=== PATIENT | female | born 1965 | race Caucasian/White ===

== ENCOUNTER 2020-02-25 14:26 | Inpatient (IN) | payer MEDICARE, OTHER ==
[2020-02-25] VITALS (13 sets, daily range): BP systolic 73–117; BP diastolic 28–65
[~2020-02-25] VITALS: Ht 149.9 cm; Wt 41.1 kg
[~2020-02-25 14:26] MED LIST: ALBUTEROL2.5 MG/31; ZOFRAN ODT4 MG PO; [UNRECOGNIZED DRUG - OTHER]
[2020-02-25 15:22] LABS: ABSOLUTE LYMPHOCYTES 1.5 thou/uL (0.8-5.3); ABSOLUTE MONOCYTES 0.2 thou/uL (0.0-1.2); ABSOLUTE NEUTROPHILS 1.6 thou/uL (1.6-8.1); BASOPHILS 0.9 %; EOSINOPHILS 0.5 %; HEMATOCRIT 39.9 % (37.0-47.0); HEMOGLOBIN 13.5 gm/dL (12.0-15.0); LYMPHOCYTES 43.5 %; MCH 35.9 pg (26.0-34.0); MCHC 33.7 g/dL (28.0-37.0); MCV 106.6 fL (80.0-100.0); MONOCYTES 7.2 %; MPV 8.3 fl. (7.2-11.1); NUCLEATED RBCS 0 /100WBC; PLATELET COUNT* 197 thou/uL (150-400); POLYS 47.9 %; RBC 3.75 mil/uL (4.20-5.00); RDW-CV 14.7 % (10.5-14.5); WBC 3.4 thou/uL (4.0-11.0)
[2020-02-25 15:34] LABS: CALCIUM 7.8 mg/dL (8.5-10.1); CREATININE 0.4 mg/dL (0.6-1.3); POTASSIUM 3.6 mmol/L (3.5-5.1)
[2020-02-25 15:39] LABS: URINE BILIRUBIN NEGATIVE (Negative); URINE BLOOD 1+ (Negative); URINE CLARITY CLOUDY; URINE COLOR STRAW; URINE GLUCOSE-RANDOM NEGATIVE (Negative); URINE KETONES NEGATIVE (Negative); URINE PROTEIN 2+ (Negative); URINE UROBILINOGEN 0.2 E.U./dl (0.2-1.0)
[2020-02-25 15:39] LABS: ALBUMIN 2.3 g/dL (3.4-5.0); TOTAL BILIRUBIN 0.4 mg/dL (<0.1-1.0); TOTAL PROTEIN 6.1 g/dL (6.4-8.2)
[2020-02-25 15:43] LABS: SQUAMOUS 0-3 Few /LPF (0-3); URINE LEUKOCYTES-REFLEX 3+ (Negative); URINE NITRITE-REFLEX POSITIVE (Negative); WBC CLUMPS Many (None Seen)
[2020-02-25 15:44] LABS: BACTERIA-REFLEX >30 Many /HPF (None Seen); CASTS None Seen /LPF (None Seen); CRYSTALS None Seen /LPF (None Seen); MUCUS 0-3 Light strn/LPF (None Seen); URINE RBC 3-10 Few /HPF (0-2); URINE WBC-REFLEX >25 Many /HPF (0-5)
[2020-02-25 20:41] LABS: BE 2.6 mmol/L (-2 to +3)
[2020-02-25 20:45] LABS: PCO2 19.4 mmHg (35.0-45.0); PO2 200.7 mmHg (75.0-100.0); pH 7.657 (7.340-7.450)
[2020-02-26] VITALS (68 sets, daily range): BP systolic 57–136; BP diastolic 20–66
[2020-02-26 05:12] LABS: HEMATOCRIT 38.2 % (37.0-47.0); HEMOGLOBIN 12.9 gm/dL (12.0-15.0); MCH 35.5 pg (26.0-34.0); MCHC 33.8 g/dL (28.0-37.0); MCV 104.9 fL (80.0-100.0); MPV 8.4 fl. (7.2-11.1); NUCLEATED RBCS 0 /100WBC; PLATELET COUNT* 246 thou/uL (150-400); RBC 3.64 mil/uL (4.20-5.00); RDW-CV 14.7 % (10.5-14.5); WBC 10.4 thou/uL (4.0-11.0)
[2020-02-26 05:35] LABS: CALCIUM 7.7 mg/dL (8.5-10.1); CREATININE 0.6 mg/dL (0.6-1.3); POTASSIUM 3.6 mmol/L (3.5-5.1)
[2020-02-26 05:54] LABS: ABSOLUTE LYMPHOCYTES 0.5 thou/uL (0.8-5.3); ABSOLUTE NEUTROPHILS 9.9 thou/uL (1.6-8.1); ANISOCYTOSIS 1+; PLATELET ESTIMATE ADEQUATE; POIKILOCYTOSIS 1+
[2020-02-26 08:57] LABS: BE -0.3 mmol/L (-2 to +3); PCO2 31.2 mmHg (35.0-45.0); pH 7.474 (7.340-7.450)
[2020-02-26 08:59] LABS: PO2 152.1 mmHg (75.0-100.0)
--- NOTE | 2020-02-26 12:19 | EKG ---
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1965 Requested By: Adonay Roblero Order Number: [id number] MD: Frankie Fisher Measurements Intervals [place] Rate: 49 P: 55 MN: 148 QRS: 41 QRSD: 91 T: 68 QT: 489 QTc: 442 Interpretive Statements Sinus bradycardia nonspecific t wave changes Baseline wander in lead(s) V5 Compared to ECG 08/18/2006 13:09:09 ST (T wave) deviation now present Sinus rhythm no longer present Electronically Signed On 02-26-2020 12:19:12 OFFAL SEPARATOR by Frankie Fisher [email or web address] <ELECTRONICALLY SIGNED> By: Frankie Fisher MD, FACC 02/26/20 1219 10 151 Frankie Fisher MD, FACC /EPI
[2020-02-26 13:56] LABS: APTT 23.9 Seconds (25.0-31.3); PROTIME 10.9 Seconds (9.20-11.50)
--- NOTE | 2020-02-26 15:55 | 2DMMODE ---
[place] [address] 2 D/M-MODE ECHOCARDIOGRAM Name: ISRAELZOE Room: 006-P ADM IN M.R.#: [id number] Admission: 02/25/20 Attend Phys: James Sanchez, Discharge: Date of : 63 Date of Service: 02/26/20 1555 Report #: [id number] THIS REPORT FOR: cc: Uyen Hernandez Maggie M. DO Blick, David R. MD [facility] ~ APPROVED REPORT Study performed: 02/26/2020 14:42:03 EXAM: Comprehensive 2D, Doppler, and color-flow Echocardiogram Patient Location: In-Patient Room #: 006 Status: routine BSA: 1.39 HR: 52 bpm BP: 126/52 mmHg Rhythm: NSR Other Information Study Quality: Good Technically limited study due to no apical views. Indications Hypotension 2D Dimensions IVSd: 6.91 (7-11mm) LVOT Diam: 18.83 (18-24mm) LVDd: 38.18 mm PWd: 8.34 (7-11mm) LVDs: 19.73 (25-40mm) Aortic Root: 17.20 mm Pulmonary Valve PV Peak Vignesh.: 1.58 m/s PV Peak Gr.: 10.05 mmHg Tricuspid Valve RAP Estimate: 5.00 mmHg TR Peak Gr.: 21.12 mmHg RVSP: 26.00 mmHg PA Pressure: 26.00 mmHg Left Ventricle The left ventricle is normal size. There is [place] [address] 2 D/M-MODE ECHOCARDIOGRAM Name: ZOE WOOD Room: [address] IN [facility]#: [id number] Admission: 02/25/20 Attend Phys: James Sanchez, Discharge: Date of : 63 Date of Service: 02/26/20 1555 Report #: [id number] motion. There is normal left ventricular wall thickness. Left ventricular systolic function is normal. The left ventricular ejection fraction is within the normal range. LVEF is 65-70%. This study is not technically sufficient to allow evaluation of the LV diastolic function. Right Ventricle The right ventricle is normal size. The right ventricular systolic function is normal. Atria The left atrium size is normal. The right atrium size is normal. Aortic Valve The aortic valve is normal in structure. No aortic regurgitation is present. There is no aortic valvular stenosis. Mitral Valve The mitral valve is normal in structure. Trace mitral regurgitation. No evidence of mitral valve stenosis. Tricuspid Valve The tricuspid valve is normal in structure. Mild tricuspid regurgitation. estimated pa pressure 30 mm Hg Pulmonic Valve The pulmonary valve is normal in structure. There is no pulmonic valvular regurgitation. Great Vessels The aortic root is normal in size. IVC is normal in size and collapses >50% with inspiration. Pericardium There is no pericardial effusion. Moderate left pleural effusion. <Conclusion> LVEF is 65-70%. Mild tricuspid regurgitation. estimated pa pressure 30 mm Hg <ELECTRONICALLY SIGNED> By: Frankie Fisher MD, FACC 02/26/20 1555 1555 1555 Frankie Fisher MD, FACC /INF
[2020-02-26 18:10] LABS: CALCIUM 7.7 mg/dL (8.5-10.1); CREATININE 0.7 mg/dL (0.6-1.3); POTASSIUM 3.4 mmol/L (3.5-5.1)
[2020-02-27] VITALS (31 sets, daily range): BP systolic 89–138; BP diastolic 34–61
[2020-02-27 05:26] LABS: ABSOLUTE LYMPHOCYTES 0.9 thou/uL (0.8-5.3); ABSOLUTE MONOCYTES 0.4 thou/uL (0.0-1.2); ABSOLUTE NEUTROPHILS 16.1 thou/uL (1.6-8.1); BASOPHILS 0.1 %; HEMATOCRIT 39.4 % (37.0-47.0); HEMOGLOBIN 13.2 gm/dL (12.0-15.0); LYMPHOCYTES 5.3 %; MCH 35.3 pg (26.0-34.0); MCHC 33.4 g/dL (28.0-37.0); MCV 105.7 fL (80.0-100.0); MONOCYTES 2.1 %; MPV 8.5 fl. (7.2-11.1); NUCLEATED RBCS 0 /100WBC; PLATELET COUNT* 235 thou/uL (150-400); POLYS 92.5 %; RBC 3.72 mil/uL (4.20-5.00); RDW-CV 14.8 % (10.5-14.5); WBC 17.4 thou/uL (4.0-11.0)
[2020-02-27 05:41] LABS: ALBUMIN 2.2 g/dL (3.4-5.0); CALCIUM 7.7 mg/dL (8.5-10.1); CREATININE 0.5 mg/dL (0.6-1.3); MAGNESIUM 2.4 mg/dL (1.8-2.4); TOTAL BILIRUBIN 0.4 mg/dL (<0.1-1.0); TOTAL PROTEIN 6.3 g/dL (6.4-8.2)
[2020-02-27 05:44] LABS: POTASSIUM 2.9 mmol/L (3.5-5.1)
[2020-02-27 09:27] LABS: PCO2 32.4 mmHg (35.0-45.0); PO2 78.5 mmHg (75.0-100.0); pH 7.512 (7.340-7.450)
--- NOTE | 2020-02-27 10:49 | EKG ---
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1965 Requested By: Frankie Fisher Order Number: [id number] MD: Moreno Blackwood Measurements Intervals [place] Rate: 48 P: 69 UT: 139 QRS: 57 QRSD: 81 T: 78 QT: 567 QTc: 507 Interpretive Statements Sinus bradycardia Nonspecific T wave flattening PROLONGED QT INTERVAL Compared to ECG 02/25/2020 15:11:05 T-wave abnormality no longer present Electronically Signed On 02-27-2020 10:49:34 HEAD HOST/HOSTESS by Moreno Blackwood [email or web address] <ELECTRONICALLY SIGNED> By: Moreno Blackwood MD, FACC 02/27/20 1049 0807 0807 Moreno Blackwood MD, FAC /EPI
--- NOTE | 2020-02-27 13:47 | CON ---
[address] [address] CONSULTATION Name: ZOE WOOD Room: [address] IN .R.#: [id number] Admission: 02/25/20 Attend Phys: James Sanchez MD Discharge: Date of : 63 Report #: [id number] THIS REPORT FOR: //name// cc: Uyen Hernandez Maggie M. DO ~ DATE OF SERVICE: 02/26/2020 CARDIOLOGY CONSULTATION HISTORY OF PRESENT ILLNESS: The patient is a 54-year-old white female who I was asked to see in the ICU today after she was noted to be bradycardic. The history is obtained from the chart, there are no family members available at this time. The patient is currently intubated. She apparently was brought to the Emergency Room yesterday by ambulance. She apparently has a history of Down syndrome. According to paramedics, she had a seizure one hour prior to admission. When the paramedics arrived, she was lying in bed and had urinated on herself. She had tremors in the ambulance. She was given Versed. She was placed on oxygen. She apparently does have a history of seizures. After admission, she was intubated for respiratory distress. She was noted to be bradycardic and Cardiology consultation was requested. PAST MEDICAL HISTORY: Significant for chronic ear problems. MEDICATIONS: Her only medications including albuterol inhaler. ALLERGIES: SHE HAS AN ALLERGY TO PENICILLIN. FAMILY HISTORY: Noncontributory. SOCIAL HISTORY: No smoking. No alcohol abuse. REVIEW OF SYSTEMS: Apparently otherwise unremarkable. PHYSICAL EXAMINATION: GENERAL: Revealed an elderly female lying in bed. She was on a ventilator. VITAL SIGNS: She had a blood pressure of 120/70, pulse 70. HEENT: She is anicteric. Conjunctivae are pink. Mucous membranes are moist. CHEST: Clear to auscultation. CARDIOVASCULAR: Regular rate and rhythm. ABDOMEN: Soft. EXTREMITIES: Had no edema. SKIN: Cool and dry. NEUROLOGIC: She would withdraw from pain. She occasionally would open her eyes. LABORATORY DATA: Her ECG on admission showed a sinus bradycardia, [place] [address] CONSULTATION Name: LATONYA WOODFIDEL GARCIA Room: [address]#: [id number] Admission: 02/25/20 Attend Phys: James Sancehz MD Discharge: Date of : 63 Report #: [id number] T-wave changes. Her lab work on admission revealed the following: Sodium 140, potassium 3.6, creatinine 0.6, glucose 208, SGOT 86, SGPT 173. Troponin 0.24. White blood cell count 10.4, hemoglobin 12.9. Her CT scan of the head performed without contrast yesterday in the Emergency Room showed no acute abnormalities, small ischemic changes noted. Her chest x-ray on admission showed atelectasis. IMPRESSION AND RECOMMENDATIONS: 1. Bradycardia. Recommend checking thyroid function studies. 2. Hypotension. Suspect sepsis. 3. Seizure. 4. Respiratory distress. The patient intubated. Recommend echocardiogram. 5. Elevated liver function studies. 6. Elevated blood glucose. I would recommend ruling out diabetes. <ELECTRONICALLY SIGNED> By: Frankie Fisher MD, FACC 02/27/20 1347 1302 [id number] Fisher MD, FACC /nt
[2020-02-27 17:14] LABS: CREATININE 0.5 mg/dL (0.6-1.3); POTASSIUM 3.1 mmol/L (3.5-5.1)
[2020-02-28] VITALS (38 sets, daily range): BP systolic 68–123; BP diastolic 45–87
[2020-02-28 04:23] LABS: ABSOLUTE MONOCYTES 0.4 thou/uL (0.0-1.2); ABSOLUTE NEUTROPHILS 11.7 thou/uL (1.6-8.1); BASOPHILS 0.1 %; HEMATOCRIT 31.8 % (37.0-47.0); LYMPHOCYTES 7.5 %; MCH 36.3 pg (26.0-34.0); MCHC 34.6 g/dL (28.0-37.0); MCV 104.9 fL (80.0-100.0); MONOCYTES 2.8 %; MPV 7.5 fl. (7.2-11.1); NUCLEATED RBCS 0 /100WBC; PLATELET COUNT* 188 thou/uL (150-400); POLYS 89.6 %; RBC 3.03 mil/uL (4.20-5.00); RDW-CV 14.8 % (10.5-14.5)
[2020-02-28 04:50] LABS: ALBUMIN 2.9 g/dL (3.4-5.0); CALCIUM 7.9 mg/dL (8.5-10.1); CREATININE 0.5 mg/dL (0.6-1.3); MAGNESIUM 2.1 mg/dL (1.8-2.4); TOTAL BILIRUBIN 0.5 mg/dL (<0.1-1.0); TOTAL PROTEIN 6.1 g/dL (6.4-8.2)
[2020-02-28 12:34] LABS: BE 5.2 mmol/L (-2 to +3); PCO2 38.8 mmHg (35.0-45.0); pH 7.489 (7.340-7.450)
[2020-02-28 12:43] LABS: PO2 159.3 mmHg (75.0-100.0)
--- NOTE | 2020-02-28 14:26 | CON ---
[address] [address] CONSULTATION Name: ZOE WOOD Room: [address] ADM IN .R.#: [id number] Admission: 02/25/20 Attend Phys: James Sanchez MD Discharge: Date of : 63 Report #: [id number] THIS REPORT FOR: //name// cc: Uyen Hernandez Maggie M. DO ~ DATE OF SERVICE: 02/28/2020 PRIMARY CARE PHYSICIAN: Uyen Hernandez DO Please note at the time of this dictation, the patient was seen and physically examined by myself. REASON FOR CONSULTATION: Elevated LFTs. HISTORY OF PRESENT ILLNESS: This is a 54-year-old female who presented to the Emergency Room, brought by EMS with having a seizure. Upon arrival of the EMS, they noted that she was incontinent of urine and then had another seizure in the ambulance on the way here. It is noted that she has had a history of seizures in the past. She also then began developing some respiratory distress and was intubated at that time and is currently on the vent. Unable to obtain any of her past medical history or review of systems, all is obtained from the chart at the present time. ALLERGIES: KEFLEX AND PENICILLIN. MEDICATIONS: From home, no known medications. PAST MEDICAL HISTORY: Down syndrome, chronic ear problems and PVD. PAST SURGICAL HISTORY: Negative. FAMILY HISTORY: Unknown. SOCIAL HISTORY: No alcohol, tobacco or illegal drug use. REVIEW OF SYSTEMS: Twelve-point review of systems is essentially negative except what is mentioned in the HPI. PHYSICAL EXAMINATION: VITAL SIGNS: Temperature 36.6, pulse 67, respirations 13 and on the ventilator, blood pressure 118/55. HEART: Regular rate and rhythm. LUNGS: Diminished with some crackles bilaterally. ABDOMEN: Soft, positive bowel sounds in all 4 quadrants [place] [address] CONSULTATION Name: ZOE WOOD Room: [address] IN [facility]#: [id number] Admission: 02/25/20 Attend Phys: James Sanchez MD Discharge: Date of : 63 Report #: [id number] tenderness noted. LABORATORY DATA: Hemoglobin 11, white count is 13, platelets 188. GFR is 128. Total bilirubin 0.5, alkaline phosphatase highest was 116, it is down to 82, ALT was 173 down to 86, AST 86 down to 25, positive for UTI with some sepsis. IMAGING: Ultrasound was negative. CT showed gallbladder distention and a large amount of stool throughout the colon. IMPRESSION: 1. Elevated liver function tests, trending down. 2. Constipation. 3. Leukocytosis. 4. Down syndrome. 5. Sepsis urinary tract infection. 6. Seizure disorder. PLAN: 1. We will check acute hepatitis panel and autoimmune labs. 2. Further recommendations to be made once the above have all been noted. Thank you for allowing us to participate in this patient's care. Please do not hesitate to call with any questions in regard to this consult. <ELECTRONICALLY SIGNED> By: Rick Breen DO 02/28/20 1426 1021 [id number] Breen DO /nt
[2020-02-29] VITALS (27 sets, daily range): BP systolic 65–133; BP diastolic 36–80
[2020-02-29 04:36] LABS: ABSOLUTE LYMPHOCYTES 1.3 thou/uL (0.8-5.3); ABSOLUTE MONOCYTES 0.5 thou/uL (0.0-1.2); ABSOLUTE NEUTROPHILS 7.8 thou/uL (1.6-8.1); BASOPHILS 0.1 %; HEMATOCRIT 35.5 % (37.0-47.0); HEMOGLOBIN 12.1 gm/dL (12.0-15.0); LYMPHOCYTES 13.9 %; MONOCYTES 5.1 %; MPV 8.1 fl. (7.2-11.1); NUCLEATED RBCS 0 /100WBC; PLATELET COUNT* 196 thou/uL (150-400); POLYS 80.9 %; RBC 3.35 mil/uL (4.20-5.00); RDW-CV 14.8 % (10.5-14.5); WBC 9.6 thou/uL (4.0-11.0)
[2020-02-29 05:03] LABS: ALBUMIN 2.8 g/dL (3.4-5.0); CALCIUM 7.7 mg/dL (8.5-10.1); CREATININE 0.4 mg/dL (0.6-1.3); POTASSIUM 3.3 mmol/L (3.5-5.1); TOTAL BILIRUBIN 0.4 mg/dL (<0.1-1.0); TOTAL PROTEIN 6.5 g/dL (6.4-8.2)
[2020-02-29 07:08] LABS: HEPATITIS B SURFACE AG Negative (Negative)
[2020-02-29 14:07] LABS: ANA INTERPRETATION Negative (Negative)
[2020-03-01] VITALS (67 sets, daily range): BP systolic 79–128; BP diastolic 33–87
[2020-03-01 07:02] LABS: ABSOLUTE LYMPHOCYTES 1.1 thou/uL (0.8-5.3); ABSOLUTE MONOCYTES 0.4 thou/uL (0.0-1.2); BASOPHILS 0.1 %; HEMATOCRIT 34.6 % (37.0-47.0); LYMPHOCYTES 14.1 %; MCH 36.7 pg (26.0-34.0); MCHC 34.8 g/dL (28.0-37.0); MCV 105.4 fL (80.0-100.0); MONOCYTES 5.2 %; MPV 7.9 fl. (7.2-11.1); NUCLEATED RBCS 0 /100WBC; PLATELET COUNT* 187 thou/uL (150-400); POLYS 80.6 %; RBC 3.28 mil/uL (4.20-5.00); RDW-CV 14.5 % (10.5-14.5); WBC 7.5 thou/uL (4.0-11.0)
[2020-03-01 07:20] LABS: ALBUMIN 2.6 g/dL (3.4-5.0); CALCIUM 7.7 mg/dL (8.5-10.1); CREATININE 0.3 mg/dL (0.6-1.3); PHOSPHORUS* 1.6 mg/dL (2.5-4.9); POTASSIUM 3.5 mmol/L (3.5-5.1); TOTAL BILIRUBIN 0.4 mg/dL (<0.1-1.0); TOTAL PROTEIN 6.2 g/dL (6.4-8.2)
[2020-03-02] VITALS (77 sets, daily range): BP systolic 78–120; BP diastolic 34–81
[2020-03-03] VITALS (58 sets, daily range): BP systolic 63–118; BP diastolic 30–65
[2020-03-04] VITALS (16 sets, daily range): BP systolic 78–117; BP diastolic 52–66
[2020-03-04 13:22] LABS: ABSOLUTE LYMPHOCYTES 1.3 thou/uL (0.8-5.3); ABSOLUTE MONOCYTES 0.4 thou/uL (0.0-1.2); ABSOLUTE NEUTROPHILS 5.6 thou/uL (1.6-8.1); BASOPHILS 0.3 %; HEMATOCRIT 38.1 % (37.0-47.0); HEMOGLOBIN 12.8 gm/dL (12.0-15.0); MCH 35.9 pg (26.0-34.0); MCHC 33.7 g/dL (28.0-37.0); MCV 106.4 fL (80.0-100.0); MONOCYTES 5.7 %; MPV 8.2 fl. (7.2-11.1); NUCLEATED RBCS 0 /100WBC; PLATELET COUNT* 246 thou/uL (150-400); RBC 3.58 mil/uL (4.20-5.00); RDW-CV 14.4 % (10.5-14.5); WBC 7.3 thou/uL (4.0-11.0)
[2020-03-04 13:35] LABS: ALBUMIN 2.5 g/dL (3.4-5.0); CALCIUM 7.9 mg/dL (8.5-10.1); CREATININE 0.4 mg/dL (0.6-1.3); TOTAL BILIRUBIN 0.6 mg/dL (<0.1-1.0); TOTAL PROTEIN 6.3 g/dL (6.4-8.2)
[2020-03-04 13:37] LABS: POTASSIUM 2.4 mmol/L (3.5-5.1)
[2020-03-05] VITALS (11 sets, daily range): BP systolic 85–108; BP diastolic 49–72
[2020-03-05 06:15] LABS: ANION GAP < 0 mmol/L (7-16); BUN 16 mg/dL (7-18); CALCIUM 7.6 mg/dL (8.5-10.1); CHLORIDE 106 mmol/L (98-107); CO2 36 mmol/L (21-32); CREATININE 0.4 mg/dL (0.6-1.3); GLUCOSE 174 mg/dL (70-99); SODIUM 141 mmol/L (136-145)
[2020-03-05 06:16] LABS: POTASSIUM 4.1 mmol/L (3.5-5.1)
[2020-03-05 10:41] LABS: URINE BILIRUBIN NEGATIVE (Negative); URINE BLOOD TRACE (Negative); URINE CLARITY CLEAR; URINE COLOR YELLOW; URINE GLUCOSE-RANDOM NEGATIVE (Negative); URINE KETONES TRACE (Negative); URINE NITRITE-REFLEX NEGATIVE (Negative); URINE PROTEIN TRACE (Negative)
[2020-03-05 10:43] LABS: URINE LEUKOCYTES-REFLEX 2+ (Negative)
[2020-03-05 10:55] LABS: BACTERIA-REFLEX 1-9 Few /HPF (None Seen); CASTS None Seen /LPF (None Seen); CRYSTALS None Seen /LPF (None Seen); MUCUS None Seen strn/LPF (None Seen); SQUAMOUS 0-3 Few /LPF (0-3); URINE RBC 3-10 Few /HPF (0-2)
[2020-03-06] VITALS: BP 137/74
[2020-03-06 04:00] VITALS: BP 96/56
[2020-03-06 05:59] LABS: HEMATOCRIT 31.5 % (37.0-47.0); MCH 36.5 pg (26.0-34.0); MCHC 34.1 g/dL (28.0-37.0); MPV 8.1 fl. (7.2-11.1); RBC 2.94 mil/uL (4.20-5.00); RDW-CV 14.8 % (10.5-14.5); WBC 9.8 thou/uL (4.0-11.0)
[2020-03-06 06:01] LABS: HEMOGLOBIN 10.7 gm/dL (12.0-15.0)
[2020-03-06 06:14] LABS: CALCIUM 7.6 mg/dL (8.5-10.1); CREATININE 0.4 mg/dL (0.6-1.3); MAGNESIUM 2.4 mg/dL (1.8-2.4); POTASSIUM 3.6 mmol/L (3.5-5.1)
[2020-03-06 08:00] VITALS: BP 96/58
[2020-03-06 19:45] VITALS: BP 137/70
[2020-03-07] VITALS: BP 117/66
[2020-03-07 04:00] VITALS: BP 113/69
[2020-03-07 05:45] LABS: HEMATOCRIT 35.9 % (37.0-47.0); MCH 35.8 pg (26.0-34.0); MCHC 33.5 g/dL (28.0-37.0); MPV 8.2 fl. (7.2-11.1); RBC 3.35 mil/uL (4.20-5.00); RDW-CV 14.2 % (10.5-14.5); WBC 18.3 thou/uL (4.0-11.0)
[2020-03-07 05:49] LABS: CREATININE 0.6 mg/dL (0.6-1.3); MAGNESIUM 2.1 mg/dL (1.8-2.4); POTASSIUM 3.1 mmol/L (3.5-5.1)
[2020-03-07 08:00] VITALS: BP 98/62
[2020-03-07 20:00] VITALS: BP 96/62
[2020-03-07 23:20] LABS: INFLUENZA A ANTIGEN Negative (Negative); INFLUENZA B ANTIGEN Negative (Negative)
[2020-03-08] VITALS: BP 101/56
[2020-03-08 04:00] VITALS: BP 100/47
[2020-03-08 08:00] VITALS: BP 114/56
[2020-03-08 12:34] VITALS: BP 110/56
[2020-03-08 15:38] LABS: HEMATOCRIT 34.1 % (37.0-47.0); HEMOGLOBIN 11.4 gm/dL (12.0-15.0); MCH 36.3 pg (26.0-34.0); MCHC 33.4 g/dL (28.0-37.0); MCV 108.5 fL (80.0-100.0); MPV 7.9 fl. (7.2-11.1); RBC 3.14 mil/uL (4.20-5.00); RDW-CV 14.9 % (10.5-14.5); WBC 20.1 thou/uL (4.0-11.0)
[2020-03-08 15:52] LABS: CALCIUM 7.3 mg/dL (8.5-10.1); CREATININE 0.6 mg/dL (0.6-1.3); MAGNESIUM 2.4 mg/dL (1.8-2.4); POTASSIUM 4.1 mmol/L (3.5-5.1); TOTAL BILIRUBIN 0.4 mg/dL (<0.1-1.0); TOTAL PROTEIN 5.4 g/dL (6.4-8.2)
[2020-03-08 16:43] VITALS: BP 108/55
[2020-03-08 19:07] LABS: URINE BILIRUBIN NEGATIVE (Negative); URINE BLOOD TRACE (Negative); URINE CLARITY CLEAR; URINE COLOR YELLOW; URINE GLUCOSE-RANDOM NEGATIVE (Negative); URINE KETONES NEGATIVE (Negative); URINE LEUKOCYTES-REFLEX NEGATIVE (Negative); URINE NITRITE-REFLEX NEGATIVE (Negative); URINE PROTEIN TRACE (Negative); URINE SPECIFIC GRAVITY 1.015 (1.005-1.030)
[2020-03-08 20:00] VITALS: BP 95/56
[2020-03-08] MEDS ORDERED: MELATONIN5 M4 PO (21:16)
[2020-03-09] VITALS: BP 109/43
[2020-03-09 04:00] VITALS: BP 106/54
[2020-03-09 13:21] VITALS: BP 124/51
[2020-03-09 16:37] VITALS: BP 139/73
[2020-03-09 19:50] VITALS: BP 127/50
[2020-03-10] VITALS (7 sets, daily range): BP systolic 81–164; BP diastolic 51–84
[2020-03-10 07:15] LABS: HEMATOCRIT 33.3 % (37.0-47.0); HEMOGLOBIN 11.1 gm/dL (12.0-15.0); MCH 36.5 pg (26.0-34.0); MCHC 33.4 g/dL (28.0-37.0); MCV 109.4 fL (80.0-100.0); MPV 7.9 fl. (7.2-11.1); RBC 3.05 mil/uL (4.20-5.00); WBC 9.5 thou/uL (4.0-11.0)
[2020-03-10] MEDS ORDERED: KEPPRA 500 MG500 M1 PO (07:17)
[2020-03-10] MEDS ORDERED: HYDROCORTISONE5 MG PO (07:17)
[2020-03-10] MEDS ORDERED: FLOMAX0.4 MG PO (07:17)
[2020-03-10 07:22] LABS: CALCIUM 7.3 mg/dL (8.5-10.1); CREATININE 0.5 mg/dL (0.6-1.3); MAGNESIUM 2.4 mg/dL (1.8-2.4)
[2020-03-11] VITALS: BP 98/42
[2020-03-11 08:00] VITALS: BP 100/46
--- NOTE | 2020-03-11 08:03 | CON ---
[address] [address] CONSULTATION Name: ZOE WOOD Room: [address] IN M.R.#: [id number] Admission: 02/25/20 Attend Phys: James Sanchez MD Discharge: Date of : 63 Report #: [id number] THIS REPORT FOR: //name// cc: Uyen Hernandez Maggie M. DO ~ DATE OF SERVICE: 02/26/2020 REQUESTING PHYSICIAN: James Sanchez MD INDICATION FOR CONSULTATION: Ventilator management. HISTORY OF PRESENT ILLNESS: A 54-year-old female with past medical history includes a history of Down syndrome. The patient is now admitted with seizure-like activity. She is reported to have had tonic-clonic seizures on initial presentation. The patient was endotracheally intubated for airway protection. The patient currently is significantly hypotensive and remains on a norepinephrine infusion. She dropped her heart rate. For this reason, this is being switched over to dopamine, in fact the patient has both dopamine as well as a norepinephrine running at this time. During the night, the patient also received a propofol as well as fentanyl infusion. Considering seizure activity as well as the fact that the patient was hypotensive, this has been switched over to Versed drip. The patient is currently ventilating and oxygenating adequately. Seizure activity has subsided. She has had a low-grade fever. There is no swelling of lower extremities. She has been given fluids overnight, which she has tolerated well. The patient is on the ventilator; and therefore, is unable to provide a further history or review of systems. PAST MEDICAL HISTORY: Down syndrome, chronic ear problems, peripheral vascular disease. SOCIAL HISTORY: Lifetime nonsmoker. No known history of heavy alcohol use or illegal drug use. CURRENT MEDICATIONS: List in [facility] reviewed. HOME MEDICATIONS: In [facility] reviewed. FAMILY HISTORY: There is no pertinent family history. ALLERGIES: THE PATIENT IS REPORTED TO BE ALLERGIC TO BOTH CEPHALOSPORINS WELL PENICILLINS. THE PATIENT, HOWEVER, IS CURRENTLY ON MEROPENEM AND HAS NOT HAD AN ADVERSE REACTION TO MEROPENEM. PHYSICAL EXAMINATION: GENERAL: She is sedated with Versed, 35% FiO2, assist control mode of ventilation, 5 of PEEP. Ventilator settings as well [place] [address] CONSULTATION Name: ISRAELZOE Room: [address]#: [id number] Admission: 02/25/20 Attend Phys: James Sanchez MD Discharge: Date of : 63 Report #: [id number] She is bradycardic. VITAL SIGNS: Heart rate is between 35 and 45, blood pressure with the pressors as described is maintained at 120/50. She is saturating 99%. She has had a low-grade fever overnight up to 37.8. Temperature is 37.0 at this time. HEENT: Head is normocephalic and atraumatic. Endotracheal tube is low in the trachea. NECK: Does not show raised JVP, asymmetry, mass or lymph nodes. CHEST: Symmetrical expansion on inspection and palpation. On auscultation, chest is clear. HEART: Regular, no murmur. ABDOMEN: Soft and nontender. EXTREMITIES: Lower extremities show no edema, no calf tenderness. SKIN: Dry and intact. NEUROLOGICAL: She does move all extremities to pain. LABORATORY DATA: The patient's chest x-ray from this morning is reviewed and compared with the patient's previous chest x-rays. There is a vague radiopaque density in the right middle lobe. I do not see any large infiltrates. I do not see any pulmonary vascular congestion. In case the patient aspirated, then the opacity in the right middle lobe could indicate that; however, it most likely represents chronic change. I see several similar findings on the x-ray in 2006 as well. The patient's arterial blood gases showing significant alkalosis in [facility] reviewed. CBC as well as chemistries in [facility] reviewed. Note that the patient initially did not have any elevation in neutrophils and did not have bandemia reported either. Urinalysis is abnormal in [facility] reviewed. COVID-19 antigen negative. PCR pending. ASSESSMENT AND PLAN: 1. Acute respiratory failure. At this time, we will go ahead and cut down on the tidal volume further considering that she had seizures earlier and she is hypotensive, I would agree with continuing with the Versed infusion. The patient does have a central line in place. 2. Shock/hypotension. I agree that the most likely etiology of shock and septic shock; however, we have not established this yet. Initially, the patient did not have elevated WBC count, did not have elevated neutrophils or bandemia. At this time, the patient's chest x-ray does not show any pulmonary vascular congestion. Therefore, she should be able to tolerate more fluids and I have ordered more fluids. Also, agree with continuing with hydrocortisone and is already ordered by the primary service and will also continue the same. We will see if as a result of a fluid bolus, her blood pressure comes up. If not, then I will consider obtaining an arterial line to verify that the blood pressures we are measuring are accurate. Also, I would like to investigate further the etiology of shock. Certainly, sepsis from urinary tract infection can lead to significant hypotension, but other etiologies are not ruled out. I ordered an echo. I also ordered coags including a D-dimer. We will review these and then we will consider obtaining a CT of the chest, abdomen, [place] [address] CONSULTATION Name: ZOE WOOD Room: [address] IN ..#: [id number] Admission: 02/25/20 Attend Phys: James Sanchez MD Discharge: Date of : 63 Report #: [id number] 3. Seizure activity. This has subsided now. The patient is on Versed infusion. We will bring the potassium up further. We will also check magnesium and if indicated then we will replace. 4. Sepsis secondary to urinary tract infection, on meropenem. More cultures are ordered. 5. Deep venous thrombosis prophylaxis, Lovenox. 6. Gastrointestinal prophylaxis, Protonix. The patient is critically ill at this time. Total time spent providing critical care is greater than 43 minutes. <ELECTRONICALLY SIGNED> By: Matti Purvis MD 03/11/20 0803 1239 [id number] Purvis MD /nt
[2020-03-11 08:04] LABS: HEMATOCRIT 28.7 % (37.0-47.0); HEMOGLOBIN 9.7 gm/dL (12.0-15.0); MCH 36.3 pg (26.0-34.0); MCHC 33.9 g/dL (28.0-37.0); MCV 107.3 fL (80.0-100.0); MPV 8.1 fl. (7.2-11.1); RBC 2.67 mil/uL (4.20-5.00); RDW-CV 14.9 % (10.5-14.5); WBC 5.5 thou/uL (4.0-11.0)
[2020-03-11 08:13] LABS: CALCIUM 7.2 mg/dL (8.5-10.1); CREATININE 0.5 mg/dL (0.6-1.3); POTASSIUM 3.7 mmol/L (3.5-5.1)
[2020-03-11 11:30] VITALS: BP 96/48
[2020-03-11 16:40] VITALS: BP 108/43
[2020-03-11 19:40] VITALS: BP 103/51
[2020-03-12 00:08] VITALS: BP 88/39
[2020-03-12 08:20] VITALS: BP 126/68
[2020-03-12 11:41] VITALS: BP 116/69
== END 2020-03-12 16:20 | DRG 871 ==
LOC: M.ERS 14:26 → M.TBA-ER 17:57 → M.2W 17:57 → M.ICU 17:57 → M.2W 17:57 → M.ICU 18:56 → M.2W 03-05 15:52
PROVIDERS: Emergency Medicine Emergency Medical Services; Internal Medicine; Internal Medicine Critical Care Medicine; Nurse Practitioner Adult Health; Pediatrics; ADMIT Internal Medicine; ATTEND Internal Medicine
PROC: 02HV33Z Insertion of Infusion Device into Superior Vena Cava, Percutaneous Approach (ICD-10-PCS; principal; 2020-02-25)
PROC: 0BH17EZ Insertion of Endotracheal Airway into Trachea, Via Natural or Artificial Opening (ICD-10-PCS; principal; 2020-02-25)
PROC: 5A1945Z Respiratory Ventilation, 24-96 Consecutive Hours (ICD-10-PCS; principal; 2020-02-25)
PROC: 00JU3ZZ Inspection of Spinal Canal, Percutaneous Approach (ICD-10-PCS; principal; 2020-02-25)
PROC: 4A133J1 Monitoring of Arterial Pulse, Peripheral, Percutaneous Approach (ICD-10-PCS; 2020-02-27)
PROC: 03HY32Z Insertion of Monitoring Device into Upper Artery, Percutaneous Approach (ICD-10-PCS; 2020-02-27)
PROC: 4A133B1 Monitoring of Arterial Pressure, Peripheral, Percutaneous Approach (ICD-10-PCS; 2020-02-27)
DX: A41.9 Sepsis, unspecified organism (principal); J96.01 Acute respiratory failure with hypoxia; E43 Unspecified severe protein-calorie malnutrition; G92 Toxic encephalopathy; J18.9 Pneumonia, unspecified organism; R57.9 Shock, unspecified; Z68.1 Body mass index [BMI] 19.9 or less, adult; N30.91 Cystitis, unspecified with hematuria; I73.9 Peripheral vascular disease, unspecified; R79.89 Other specified abnormal findings of blood chemistry; L89.159 Pressure ulcer of sacral region, unspecified stage; F03.90 Unspecified dementia, unspecified severity, without behavioral disturbance, psychotic disturbance, mood disturbance, and anxiety; G40.909 Epilepsy, unspecified, not intractable, without status epilepticus; Z20.828 Contact with and (suspected) exposure to other viral communicable diseases; Q90.9 Down syndrome, unspecified; Z79.899 Other long term (current) drug therapy; Z88.1 Allergy status to other antibiotic agents; Z88.0 Allergy status to penicillin

== ENCOUNTER 2020-03-12 14:09 | Inpatient (IN) | payer MEDICARE, OTHER ==
[~2020-03-12] VITALS: Ht 137.2 cm; Wt 38.7 kg
[~2020-03-12 14:09] MED LIST changes: +FLOMAX0.4 MG PO; +HYDROCORTISONE5 MG PO; +KEPPRA 500 MG500 M1 PO; +MELATONIN5 M4 PO
[2020-03-12 16:30] VITALS: BP 95/52
--- NOTE | 2020-03-12 17:13 | NUR ---
PATIENT ARRIVED TO UNIT AT 1630. ALERT TO SELF. VITAL SIGNS STABLE ON ROOM AIR. PATIENT CALLS OUT A LOT. FALL PRECAUTIONS IN PLACE AND BED ALARM ON. ORIENTED PATIENT TO ROOM. CALL LIGHT WITHIN REACH. NURSING WILL CONTINUE TO MONITOR.
[2020-03-12 19:00] VITALS: BP 112/50
[2020-03-13 05:41] LABS: HEMATOCRIT 32.4 % (37.0-47.0); HEMOGLOBIN 10.9 gm/dL (12.0-15.0); MCH 36.6 pg (26.0-34.0); MCHC 33.7 g/dL (28.0-37.0); MCV 108.9 fL (80.0-100.0); RBC 2.97 mil/uL (4.20-5.00); RDW-CV 15.7 % (10.5-14.5); WBC 8.4 thou/uL (4.0-11.0)
[2020-03-13 05:51] LABS: CALCIUM 7.7 mg/dL (8.5-10.1); CREATININE 0.6 mg/dL (0.6-1.3); POTASSIUM 4.1 mmol/L (3.5-5.1)
[2020-03-13 08:00] VITALS: BP 112/50
--- NOTE | 2020-03-13 08:19 | NUR ---
Nutrition: Pt admitted to rehab with debility. Was intubated on other unit with UTI, sepsis, AMS. Then extubated. Eating well, ~75%, on pureed diet. Wound to coccyx area. H/o LEA Becerra. BG WNL, alb 2, prealb 17.9. Wt relatively stable, 91#. RD will order [place] bid for wound healing. Please encourage good intake of protein supplement. Consider mild risk. Will follow weekly on rehab unit.
--- NOTE | 2020-03-13 16:33 | NUR ---
AM ASSESSMENT AND VITAL SIGNS COMPLETED DOCUMENTED. PT IS COOPERATIVE AT TIMES BUT ALSO REFUSES AT TIMES. PT YELLS LOUDLY MOST OF THE DAY. PT FED HERSELF AT MEALS WITH MIN ASSIST. PT IS INCONTINENT OF BOWEL AND BLADDER AND DOES NOT PARTICIPATE IN CHRISTIANO CARE OR CHANGING THE BRIEF. PT'S BROTHER VISITED THIS AFTERNOON. PRN TYLENOL GIVEN ONCE. FALL PRECAUTIONS AND HOURLY ROUNDING CONTINUE.
[2020-03-13 19:30] VITALS: BP 131/66
[2020-03-14 00:18] LABS: URINE BILIRUBIN NEGATIVE (Negative); URINE BLOOD NEGATIVE (Negative); URINE CLARITY CLEAR; URINE COLOR YELLOW; URINE GLUCOSE-RANDOM NEGATIVE (Negative); URINE KETONES NEGATIVE (Negative); URINE LEUKOCYTES-REFLEX NEGATIVE (Negative); URINE NITRITE-REFLEX NEGATIVE (Negative); URINE PROTEIN NEGATIVE (Negative); URINE SPECIFIC GRAVITY 1.015 (1.005-1.030); URINE UROBILINOGEN 0.2 E.U./dl (0.2-1.0)
--- NOTE | 2020-03-14 05:52 | NUR ---
ASSUMED CARES AT 1920. ALERT. AT BEDTIME PT VERY RESTLESS AND MOANING OR YELLING OUT MOSTLY UNINTELLIBLE WORDS. DIFFICULT TO DETERMINE PT'S NEEDS. LATER PT SEEMED TO BE SAYING "I NEED TO PEE." PT HAD VERY MINIMAL URINE OUTUT. BLADDER SCAN SHOWED >[address] CASON. ORDERS OBTAINED FOR UA, FLOMAX, AND BLADDER SCAN EVERY 8 HRS AND STRAIGHT CATH IF >400 CC. PT WAS STRAIGHT CATH AND HAD 900 CC YELLOW CLEAR URINE. UA SENT WAS NEGATIVE. PT SETTLED DOWN AND HAS BEEN SLEEPING SINCE. PILLS CRUSHED WITH APPLESAUCE. DRSG TO COCCYX CHANGED. BED ALARM ON. WILL CONTINUE TO MONITOR.
[2020-03-14 07:30] VITALS: BP 146/64
[2020-03-14 20:25] VITALS: BP 123/84
--- NOTE | 2020-03-14 20:30 | NUR ---
IN BED YELLING OUT. YELLS OUT "NO" WHEN TAKING BLOOD PRESSURE. TOOK MEDICINE WITHOUT RESISTANCE CRUSHED WITH APPLESAUCE. WAS ABLE TO HOLD SIPPY CUP TO DRINK WATER. GAVE TYLENOL FOR S/S OF DISCOMFORT (RESTLESSNESS).
--- NOTE | 2020-03-15 06:03 | NUR ---
RESTED QUIETLY. YELLS OUT NO WHEN ASSISTED WITH TURNING. INCONTINENT OF URINE X ONE. CHRISTIANO CARE GIVEN. HOURLY ROUNDING IN PROGRESS.
[2020-03-15 08:55] VITALS: BP 114/70
--- NOTE | 2020-03-15 17:24 | NUR ---
ALERT TO SELF. AMBULATES WITH 1 ASSIST. YELLING OUT THIS AFTERNOON. TYLENOL GIVEN AND PATIENT QUIETIER FOR A SHORT TIME. PATIENT FEEDING SELF PARTS OF MEALS WITH PLATE NATHEN ON AND SIPPY CUP. ASSISTED NEEDED WITH PUREED DIET. DRESSING DRY AND INTACT OVER COCCYX. DOES NOT USE CALL LIGHT. FALL PRECAUTIONS IN PLACE. BED ALARM AND CHAIR ALARM USED. VOIDED LARGE AMOUNT TODAY. TAKES MEDICATIONS CRUSHED IN APPLE SAUCE.
[2020-03-15 20:00] VITALS: BP 103/42
--- NOTE | 2020-03-16 00:38 | NUR ---
ASSUMED CARE AT 1930. PATIENT RESTING IN BED. PATIENT SCREAMING OUT "SHUT UP" AND JUST YELLING AT OTHER TIMES. TAKES PILLS CRUSHED IN APPLESAUCE. INCONTINENT OF URINE PER BRIEF, BRIEF REMOVED AT HS AND LEFT OPEN TO AIR. SKIN CARE DONE, MOISTURE BARRIER APPLIED TO BOTTOM. MOVES ABOUT IN BED QUITE WELL ON HER OWN. FINALLY ABOUT 2329, PATIENT QUIETED DOWN, AND IS NOW SLEEPING. DENIES PAIN. HOURLY ROUNDS CONTINUE. BED ALARM ON. CALL LITE IN REACH.
--- NOTE | 2020-03-16 05:35 | NUR ---
HAS BEEN SLEEPING SINCE AROUND 2330. DID NOT AWAKEN WITH TURNS AND WAS NOT INCONTINENT OF 529. NO C/O PAIN, NO APPARENT DISTRESS. HOURLY ROUNDS CONTINUE. BED ALARM ON. CALL LITE IN REACH.
[2020-03-16 09:00] VITALS: BP 93/46
--- NOTE | 2020-03-16 15:46 | NUR ---
INITIAL ASSESSMENT: PATIENT ADMITTED TO THE ACUTE IN REHAB UNIT ON 03/12/20 WITH A DIAGNOSIS OF DEBILITY. PRIOR TO ADMIT PT INDEPENDENT WITH ADL'S AND WALKED WITH 0 DME. PT RESIDES AT HOME WITH HER BROTHER, AND HE IS THE PT'S LEGAL GUARDIAN AND / CAREGIVER. PT HAS 0 HX OF HH OR SNF, AND PLANS TO RETURN HOME WITH HER BROTHER AT D/C. CM ORIENTED PT AND HER BROTHER TO THE REHAB UNIT AND PROCESSES, TEAM CONFRENCE, RESIDENTS RIGHTS INFO, AND TO THE ROLE OF CM. CM WILL REMAIN AVAILABLE TO ASSIST AND FOLLOW NEEDED.
--- NOTE | 2020-03-16 17:48 | NUR ---
ALERT TO SELF. UP WITH 1 ASSIST. AMBULATED IN HALLWAY WITH THERAPY. CONTINENT OF BOWEL AND BLADDER. ON PUREED DIET. WILL FEED SELF PART MEAL BUT NEED SOME ASSIST. DRESSING CHANGED TO SACRUM WOUND. WILL FREQUENTLY YELL OUT REPEATED WORDS. DR NOTIFIED OF LOW B/P THIS AM. FALL PRECAUTIONS IN PLACE. BED ALARM AND CHAIR ALARM USED.
[2020-03-16 20:00] VITALS: BP 115/68
--- NOTE | 2020-03-16 23:06 | NUR ---
ASSUMED CARE AT 1930. PATIENT RESTING IN BED, CALLING OUT LOUDLY AT INTERVALS, LESS FREQUENTLY STARTING ABOUT 0. HAS RECEIVED HER MELATONIN AT HS, SEE MAR. TAKES MEDS CRUSHED WITH APPLESAUCE. ASSISTED WITH TURNS. BRIEF REMOVED AT HS. INCONTINENT OF URINE AT TIMES. SKIN CARE DONE, MOISTURE BARRIER APPLIED. DRESSING TO SACRUM C/D/I. DENIES PAIN. CALL LITE IN REACH. BED ALARM ON. HOURLY ROUNDS CONTINUE.
--- NOTE | 2020-03-17 05:54 | NUR ---
SLEPT BETTER AFTER ABOUT 2330. HAD VERY LARGE VOIDING AROUND MIDNIGHT, REQUIRING LINEN CHANGE, AND CLOTHING CHANGE. SKIN CARE DONE, MOISTURE BARRIER APPLIED, DRESSING INTACT. HAS OCCASIONALLY CALLED OUT SAYING "SHUT UP!" NO APPARENT DISTRESS NOTED. CALL LITE IN REACH. BED ALARM ON. HOURLY ROUNDS CONTINUE.
[2020-03-17 08:45] VITALS: BP 96/39
--- NOTE | 2020-03-17 13:42 | NUR ---
WITH PATIENT WHILE SHE WAS EATTING PUREED DIET FOR LUNCH WHEN SHE CHOKED ON SOME OF THE PUREED MEAT. PATIENT HAD SOFT COUGH. HEIMLICH MANEUVER DONE ON ABD. PATIENT ABLE TO COUGH UP MEAT. PATIENT ABLE TO FINISH EATTING AND DRINKING THE REST OF HER LUNCH. NOTIFIED. PATIENT IN NO ACUTE DISTRESS AND RESTING QUIETLY IN ROOM WITH FAMILY AT THIS TIME.
--- NOTE | 2020-03-17 14:23 | NUR ---
ASSUMED CARE OF PT. ASSESSMENT COMPLETED. PREVIUOS ASSESSMENT REVIEWED. NO NEW FINDINGS.
--- NOTE | 2020-03-17 17:02 | NUR ---
PT CONTINUES TO YELL OUT. BRIEF CHANGE AND CHRISTIANO CARE GIVEN. ASSISTED WITH MEAL. UP WITH ASSISTANCE FROM CHAIR TO BED.
[2020-03-17 20:00] VITALS: BP 95/57
--- NOTE | 2020-03-17 23:23 | NUR ---
ASSUMED CARE AT 1930. PATIENT RESTING IN BED HOLDING DOLL. TAKES PILLS CRUSHED WITH APPLESAUCE, FOLLOWS WITH WATER FROM SIPPY CUP. ASSISTED WITH TURNS. INCONTINENT OF URINE. SKIN CARE DONE, MOISTURE BARRIER APPLIED. NO APPARENT DISTRESS. YELLING LESS TONIGHT. SEEMS TO RECOGNIZE THIS NURSE WHO HAS CARED FOR HER THE LAST THREE NIGHTS. HOURLY ROUNDS CONTINUE. BED ALARM ON. CALL LITE IN REACH.
[2020-03-18 05:02] LABS: HEMATOCRIT 33.9 % (37.0-47.0); HEMOGLOBIN 11.4 gm/dL (12.0-15.0); MCH 36.9 pg (26.0-34.0); MCHC 33.7 g/dL (28.0-37.0); MCV 109.5 fL (80.0-100.0); MPV 7.8 fl. (7.2-11.1); RBC 3.1 mil/uL (4.20-5.00); RDW-CV 16.5 % (10.5-14.5); WBC 7.4 thou/uL (4.0-11.0)
[2020-03-18 05:31] LABS: CALCIUM 7.6 mg/dL (8.5-10.1); CREATININE 0.6 mg/dL (0.6-1.3); MAGNESIUM 2.4 mg/dL (1.8-2.4); POTASSIUM 3.7 mmol/L (3.5-5.1)
--- NOTE | 2020-03-18 05:38 | NUR ---
SLEPT MOST OF THE NIGHT, RETURNING TO SLEEP AFTER CARES. ASSISTED WITH TURNS. INCONTINENT OF LARGE AMOUNTS OF URINE AT INTERVALS. NO APPARENT DISTRESS. COOPERATIVE WITH CARES. HOURLY ROUNDS CONTINUE. BED ALARM ON. CALL LITE IN REACH.
[2020-03-18 08:37] VITALS: BP 124/104
--- NOTE | 2020-03-18 15:48 | NUR ---
WORKED WITH THERAPIES TODAY. ASSISTED WITH MEALS. INCONT OF URINE. PERICARE AND BRIEF CHANGED PRN. NO S/S OF PAIN. UP TO CHAIR. SISTER HERE TO VISIT. CONTINUES TO YELL OUT.
[2020-03-18 20:25] VITALS: BP 87/47
--- NOTE | 2020-03-18 21:05 | NUR ---
RESTING IN BED. YELLS OUT "MARCY". GAVE PATIENT HER DOLL AND PATIENT SMILED. COOPERATIVE WITH CARES. TOOK MEDICATIONS CRUSHED WITH APPLESAUCE. PATIENT HAS FINGER IN HER MOUTH PRESSING AGAINST HER GUM. PATIENT HAS BAD TEETH. GAVE TYLENOL FOR SIGNS/SYMPTOMS OF TEETH PAIN. CALL LIGHT WITHIN REACH. SOMETIMES PATIENT USES CALL LIGHT APPROPRIATELY.
--- NOTE | 2020-03-19 04:59 | NUR ---
RESTED QUIETLY SINCE ABOUT 0030. INCONTINENT OF URINE. CHRISTIANO CARE GIVEN. TURNS SELF IN BED. HOURLY ROUNDING IN PROGRESS.
[2020-03-19 08:09] VITALS: BP 93/50
--- NOTE | 2020-03-19 16:46 | NUR ---
CM SPOKE TO THE PT'S BROTHER TO DISCUSS ANY QUESTIONS OR CONCERNS THAT HE MAY HAVE. PT'S BROTHER HAS NO QUESTIONS OR CONCERNS AT THIS TIME. CM WILL REMAIN AVAILABLE TO ASSIST AND FOLLOW NEEDED.
--- NOTE | 2020-03-19 18:35 | NUR ---
PT. ALERT, VSS, MOSTLY NON VERBAL, EATS INDEPENDANTLY WITH SETUP, VISITED BY BROTHER AT BEDSIDE, CALL LIGHT AND PERSONAL BELONGINGS PLACED WITHIN REACH, NO APPARENT PAIN AT THIS TIME.
[2020-03-19 20:00] VITALS: BP 95/51
--- NOTE | 2020-03-20 04:20 | NUR ---
ASSUMED PT CARE AT 1930. PT YELLING OUT FIRST SEVERAL HOURS OF SHIFT. PT TOOK MEDICATIONS CRUSHED IN APPLESAUCE. TYLENOL GIVEN AT HS FOR TOOTH PAIN. PT INCONTINENT OF STOOL AND URINE X1. PERICARE GIVEN. DRESSING TO SACRAL AREA INTACT. TURNS SELF IN BED. CALL LIGHT IN REACH, BED ALARM ON FOR SAFETY. HOURLY ROUNDING IN PROGRESS, WILL CONTINUE TO MONITOR.
[2020-03-20 05:01] LABS: HEMATOCRIT 31.8 % (37.0-47.0); HEMOGLOBIN 10.6 gm/dL (12.0-15.0); MCH 36.9 pg (26.0-34.0); MCHC 33.4 g/dL (28.0-37.0); MCV 110.5 fL (80.0-100.0); MPV 7.7 fl. (7.2-11.1); RBC 2.88 mil/uL (4.20-5.00)
[2020-03-20 05:42] LABS: CALCIUM 7.7 mg/dL (8.5-10.1); CREATININE 0.6 mg/dL (0.6-1.3); MAGNESIUM 2.3 mg/dL (1.8-2.4)
[2020-03-20 08:30] VITALS: BP 141/72
--- NOTE | 2020-03-20 11:56 | NUR ---
WOUND NURSE: PATIENT SEEN FOR FOLLOW UP ASSESSMENT OF SACRAL WOUND. CURRENTLY MEASURES 4.5 X 1.5 X 0.2 CM. CONTAINS 2 WOUND OPENINGS IN THIS AREA. BOTH ARE SHALLOW. PALE YELLOWISH TISSUE IN THE INFERIOR WOUND OPENING. RED NONGRANULATING TISSUE IN THE WOUND BED. MINIMAL AMOUNT OF SEROUS DRAINAGE. NO PERIWOUND REDNESS, WARMTH, OR INDURATION. PATIENT NOT TEACHEABLE.
--- NOTE | 2020-03-20 18:41 | NUR ---
ASSESSMENT COMPLETED DOCUMENTED THIS MORNING. PATIENT UP IN RECLINER TO EAT BREAKFAST WITH ASSISTANCE OF ST. GIVING MEDS WITH APPLESAUCE AND PATIENT BECAME SOA, AND COUGHING WITH COLACE. PCXR OBTAINED AND NO PROCESSES NOTED, CHANGED COLACE TO LIQUID PER DR. SANCHEZ. PATIENT HAS NOT VOIDED DURING THE DAY AFTER NUMEROUS TRIPS TO THE BR WITH STAFF. UNABLE TO LOCATE BLADDER SCANNER IN HOUSE, CALL PLACED TO DR. MCCURDY, ORDER RECD FOR ULTRASOUND TO BE OBTAINED. ORDER PLACED AND AWAITING TO BE OBTAINED.
[2020-03-20 19:00] VITALS: BP 99/63
[2020-03-20 20:00] VITALS: BP 99/63
[2020-03-20 22:53] LABS: URINE BILIRUBIN NEGATIVE (Negative); URINE BLOOD 1+ (Negative); URINE CLARITY CLOUDY; URINE COLOR YELLOW; URINE GLUCOSE-RANDOM NEGATIVE (Negative); URINE KETONES NEGATIVE (Negative); URINE LEUKOCYTES-REFLEX 3+ (Negative); URINE NITRITE-REFLEX POSITIVE (Negative); URINE PROTEIN 1+ (Negative); URINE UROBILINOGEN 0.2 E.U./dl (0.2-1.0)
[2020-03-20 23:02] LABS: URINE WBC-REFLEX >25 Many /HPF (0-5)
[2020-03-20 23:04] LABS: BACTERIA-REFLEX 1-9 Few /HPF (None Seen); CASTS None Seen /LPF (None Seen); CRYSTALS None Seen /LPF (None Seen); MUCUS None Seen strn/LPF (None Seen); SQUAMOUS NONE SEEN /LPF (0-3); URINE RBC 0-2 Rare /HPF (0-2)
--- NOTE | 2020-03-21 04:34 | NUR ---
ASSUMED PT CARE AT 1930. PT SLEEPING, WAKES WITH ASSESSMENT. PT MUCH QUIETER THAN PREVIOUS EVENING. BLADDER SCANNER MISSING, ULTRASOUND PERFORMED OF PT ABDOMEN SHOWING ESTIMATED URINE OF OVER 900 CC. ORDER OBTAINED TO STRAIGHT CATH PT ONCE, BLADDER SCAN SIX HOURS LATER AND IF OVER [address] MCLEOD[address] PT HAD LARGE INCONTINENT VOID, THEN STRAIGHT CATHED FOR APPROX 400 CC'S. SPECIMEN TO LAB, SHOWING UTI, ORDER OBTAINED FOR ANTIBIOTICS TO START THIS AM. MCLEOD PLACED AT 0430 AFTER PT BLADDER SCANNED FOR 400CC'S. PT COOPERATIVE WITH ALL THE ABOVE. PT TAKES PILLS CRUSHED IN APPLESAUCE WITHOUT DIFFICULTY. TOOK LIQUID COLACE WITHOUT COMPLAINT. SLEPT WELL OVERNIGHT. TURNS SELF IN BED. CALL LIGHT IN REACH, BED ALARM ON FOR SAFETY. HOURLY ROUNDING IN PROGRESS, WILL CONTINUE TO MONITOR.
[2020-03-21 07:30] VITALS: BP 80/39
--- NOTE | 2020-03-21 16:25 | NUR ---
TEAM CONFRENCE MEETING HELD YESTERDAY. CM AND PHYSICIAN INFORMED PT AND HER SISTER OF MEETING AND PLAN TO D/C PT WHEN FAMILY TRAINGING COMPLETED AND FAMILY READY TO TAKE PT HOME. PT'S BROTHER HERE FOR TRAINING TODAY. CM TO F/U WITH PT'S BROTHER TO DISCUSS ABILITY TO CARE FOR PT AT D/C. CM WILL REMAIN AVAILABLE TO ASSIST AND FOLLOW NEEDED.
--- NOTE | 2020-03-21 18:29 | NUR ---
1715 PATIENT ARRIVED VIA W/C VAN FROM [facility]. REPORT REC'D FROM RIVERA AT PRIOR TO ARRIVAL. PATIENT ORIENTED TO ROOM, REHAB PACKET GIVEN TO PATIENT. VSS [id number]/49 96%, DENIES ANY PAIN. STAGE 1 PU ON SACRAL AREA NOTED WITH ASSESSMENT. ASSESSMENT OBTAINED AND DOCUMENTED, OFFERRED PATIENT A MEAL TRAY AND SHE DECLINED AT THIS TIME. ALERT AND ORIENTED ALL QUESTIONS ANSWERED, ASSISTED WITH POSITIONING ON HER SIDE WITH PILLOWS.
--- NOTE | 2020-03-21 18:48 | NUR ---
NEW ORDER FOR DIPHENHYDRAMINE 25 MG FOR ANXIETY REC'D TODAY FROM DR. SANCHEZ. 1350 2 TYLENOL AND DIPHENHYDRAMINE GIVEN. BROTHER AT BEDSIDE. PATIENT FELL ASLEEP FOR ABOUT AN HOUR AND STARTED TALKING OUT AGAIN, EVENTUALLY LEADING INTO SCREAMING, SHUT UP REPEATEDLY. UP IN CHAIR FOR SUPPER AND ASSISTED WITH EATING. MCLEOD CATH PATENT AND DRAINING VERY CLOUDY PALE YELLOW URINE.
[2020-03-21 22:00] VITALS: BP 94/40
--- NOTE | 2020-03-22 05:17 | NUR ---
ASSUMED CARES AT 1920. ALERT. YELLING OUT AT TIMES WHEN AWAKE. MCLEOD CATHETER DD CLOUDY YELLOW URINE. TOOK PILLS CRUSHED WITH PUDDING. DRSG TO SACRUM INTACT. INITIALLY WITH TEMP 100.1 BUT CAME DOWN TO 99.1. SETTLED DOWN AFTER BENADRYL GIVEN AND SLEPT REST OF THE NIGHT. PT TURNED ONTO SIDES. CALL LIGHT IN REACH AND BED ALARM ON.
[2020-03-22 09:31] VITALS: BP 103/84
--- NOTE | 2020-03-22 11:53 | NUR ---
JAVIER, REHAB LIASON, CONTACTED CM TO STATED DR CREWS IS AGREEABLE TO "KEEP HER & RE-TEAM HER." PT'S BROTEHR IS NOT READY TO TAKE PT HOME.
--- NOTE | 2020-03-22 18:10 | NUR ---
HARSHA TO SHYLA. PT SISTER HERE TO VISIT. PT YELLS OUT FREQUENTLY. PT UP TO CHAIR. WORKED WITH THERAPIES.
[2020-03-22 20:21] VITALS: BP 113/61
[2020-03-22 20:30] VITALS: BP 113/61
--- NOTE | 2020-03-23 05:07 | NUR ---
ASSUMED CARES AT 1920. ALERT. VERY LOUD AND RESTLESS EARLY ON. BENADRYL GIVEN. PT SETTLED DOWN. MCLEOD CATHETER DD YELLOW URINE. INCONTINENT OF STOOL. PILLS CRUSHED WITH PUDDING. DRSG TO SACRUM CHANGED. SLEPT WELL REST OF THE NIGHT. CALL LIGHT IN REACH AND BED ALARM ON.
[2020-03-23 07:30] VITALS: BP 114/43
--- NOTE | 2020-03-23 18:53 | NUR ---
ASSESSMENT COMPLETED DOCUMENTED THIS MORNING. PATIENT CONTINUES TO BE RESTLESS/YELL OUT VERY LOUDLY...SHUT UP! NO!. PATIENT TRANSFERRED TO ROOM 333 R/T BETTER VIEW OUT OF WINDOW (WHICH ACTUALLY OCCUPIED HER FOR A COUPLE OF HOURS)...AND MULTIPLE C/O FROM NEIGHBORING PATIENTS NOT BEING ABLE TO REST AND RECOOPERATE DUE TO THEIR RECENT ILLNESSES.
--- NOTE | 2020-03-24 05:30 | NUR ---
ASSUMED PT CARE AT 1930. PT ALERT. SHOUTING OUT VERY LOUD AND REPETITIVE UNTIL SHE COULD HAVE BENEDRYL. PILLS GIVEN CRUSHED IN APPLESAUCE. PT THEN QUIETED DOWN AND WENT TO SLEEP. INCONTINENT OF STOOL X1. DRSG TO SACRUM C/D/I. PT SLEPT REST OF NIGHT. MCLEOD TO DD, DRAINING CLEAR DARK YELLOW URINE. PT TURNED Q2. CALL LIGHT IN REACH, BED ALARM ON FOR SAFETY. HOURLY ROUNDING IN PROGRESS, WILL CONTINUE TO MONITOR.
[2020-03-24 08:00] VITALS: BP 100/60
[2020-03-24 20:00] VITALS: BP 108/78
[2020-03-24 20:36] VITALS: BP 108/78
--- NOTE | 2020-03-25 04:33 | NUR ---
ASSUMED PATIENT CARE AT 1930. PT SITTING UP IN RECLINER WATCHING TELEVISION. TRANSFERRED TO BED WITH ASSIST OF ONE AND GAITBELT. PT ALERT AND COOPERATIVE WITH TRANSFER. PT TO SLEEP LATE. CALLING OUT MAJORITY OF THE NIGHT. PICTURES OF WOUND OBTAINED AND NEW DRESSING APPLIED. MCLEOD TO DD DRAINING CLEAR YELLOW URINE. CALL LIGHT IN REACH, BED ALARM ON FOR SAFETY. HOURLY ROUNDING IN PROGRESS, WILL CONTINUE TO MONITOR.
[2020-03-25 08:00] VITALS: BP 124/57
--- NOTE | 2020-03-25 14:42 | NUR ---
CM SPOKE TO PT AND FMAILY TO DISCUSS ANY QUESTIONS OR CONCERNS THAT THEY MAY HAVE. PT'S BROTHER INFORMS THAT HIS ONLY CONCERN 'IS SHE MAKING PROGRESS?'. CM INFORMED PT'S BROTHER THAT THIS WILL BE DETERMINED AT THE TEAM CONFRENCE MEETING ON WEDNESDAY AND CM AND PHYSICIAN WILL BE ABLE TO INFORM HIM OF THE TEAM'S DECISION AFTER THE MEETING. CM WILL REMAIN AVAILABLE TO ASSIST AND FOLLOW NEEDED.
--- NOTE | 2020-03-25 15:55 | NUR ---
PT CONTINUES TO YELL OUT. BROTHER HERE TO VISIT. WORKED WITH THERAPIES. HARSHA RAMOS DD.
[2020-03-25 19:00] VITALS: BP 121/76
--- NOTE | 2020-03-26 05:53 | NUR ---
ASSUMED PT CARE AT 1930. PT ALERT AND ORIENTED TO SELF. YELLING OUT CONTINUOUSLY UNTIL HS MEDS. PT TAKES MEDS CRUSHED IN APPLESAUCE WITH GUSTO. HS MEDS WHICH INCLUDED SCHEDULED MELATONIN, PRN TYLENOL AND PRN BENEDRYL GIVEN AT BEDTIME. PT SLEPT ALL NIGHT WITHOUT AWAKENING. TURNED CAREFULLY SO NOT TO AWAKEN. STOOL X1, PERICARE GIVEN AND DRESSING TO SACRAL WOUND CHANGED THIS AM. CALL LIGHT IN REACH, BED ALARM ON FOR SAFETY. HOURLY ROUNDING IN PROGRESS, WILL CONTINUE TO MONITOR.
[2020-03-26 07:30] VITALS: BP 113/47
--- NOTE | 2020-03-26 15:33 | NUR ---
CM SPOKE TO PT AND HER SISTER AT THE BEDSIDE TO DISCUSS D/C PLANNING AND PLAN TO D/C PT HOME WEDNESDAY. PT'S SISTER INFORMS OF CONCERN ABOUT PT D/C WITH MCLEOD AND WHAT THE PLAN IS TO ADDRESS IT. SHAYNA SPOKE TO PT'S BROTHER OVER THE PHONE AND INFORMS THAT HE WAS TOLD THAT 'SHE WOULDN'T D/C WITH THE MCLEOD, AND THAT SHE WOULD STAY LONG SHE STILL HAS IT. I WILL TALK TO THE MYSELF ABOUT THAT TOMORROW'. CM INFORMED NURSING AND PHYSICIAN OF THE PT'S FAMILY'S CONCERNS. CM AND PHYSICIAN WILL F/U WITH PT AND FAMILY TOMORROW AFTER THE MEETING. CM WILL REMAIN AVAILABLE TO ASSIST AND FOLLOW NEEDED.
--- NOTE | 2020-03-26 16:04 | NUR ---
PT YELLS OUT LOUDLY FREQUENTLY. SISTER HERE TO VISIT. PT UP TO CHAIR. MCLEOD TO DD TO BE DISCONTINUED IN AM. PRN PAIN MEDICATION GIVEN.
--- NOTE | 2020-03-26 16:29 | NUR ---
PT COUGHING. FUNERAL HOME ATTENDANT MARTHA NOTIFIED. CXR AND CBC ORDERED.
[2020-03-26 16:58] LABS: HEMATOCRIT 37.2 % (37.0-47.0); HEMOGLOBIN 12.2 gm/dL (12.0-15.0); MCH 36.5 pg (26.0-34.0); MCHC 32.9 g/dL (28.0-37.0); MCV 110.9 fL (80.0-100.0); MPV 7.4 fl. (7.2-11.1); RBC 3.36 mil/uL (4.20-5.00); RDW-CV 15.3 % (10.5-14.5); WBC 9.1 thou/uL (4.0-11.0)
[2020-03-26 19:00] VITALS: BP 122/65
[2020-03-27 04:27] LABS: HEMATOCRIT 32.4 % (37.0-47.0); HEMOGLOBIN 10.8 gm/dL (12.0-15.0); MCH 36.6 pg (26.0-34.0); MCHC 33.3 g/dL (28.0-37.0); MCV 109.9 fL (80.0-100.0); MPV 7.7 fl. (7.2-11.1); RBC 2.95 mil/uL (4.20-5.00); RDW-CV 14.9 % (10.5-14.5); WBC 6.7 thou/uL (4.0-11.0)
[2020-03-27 04:56] LABS: CALCIUM 7.8 mg/dL (8.5-10.1); CREATININE 0.7 mg/dL (0.6-1.3); POTASSIUM 4.1 mmol/L (3.5-5.1)
--- NOTE | 2020-03-27 05:19 | NUR ---
ASSUMED CARES AT 1920. ALERT. RESTLESS. YELLING OUT. MCLEOD CATHETER DD YELLOW URINE. MCLEOD TO BE D/C'D THIS AM. PILLS CRUSHED IN PUDDING. DRSG TO SACRUM INTACT. PT SLEPT VERY LITTLE DESPITE GIVEN BENADRYL, OFFERED FLUIDS AND TURNED THROUGHOUT THE NIGHT. CALL LIGHT IN REACH AND BED ALARM ON.
[2020-03-27 08:00] VITALS: BP 105/46
--- NOTE | 2020-03-27 18:32 | NUR ---
ASSESSMENT COMPLETED DOCUMENTED THIS MORNING. HAS BEEN UP AND PARTICIPATING WITH THERAPIES. BROTHER IN TO VISIT AND AT THE BEDSIDE. PATIENT DID NOT VOID DURING THE SHIFT AND BLADDER SCANNED FOR 652 CC YOU CALL MD TO DR. MCCURDY WAS SENT. NEW ORDER TO REINSERT MCLEOD CATHETER, LEAVE IN AND F/U WITH UROLOGY AT [place]. IMMEDIATE RETURN OF 550 CLEAR PALE YELLOW URINE OBTAINED. PATIENT TOLERATED WELL.
[2020-03-27 20:00] VITALS: BP 106/85
--- NOTE | 2020-03-28 02:05 | NUR ---
ASSUMED CARE AT 0. PATIENT RESTING IN BED. TURNS SELF SIDEWAYS IN BED. MCLEOD DRAINING MALINI URINE. TAKES PILLS CRUSHED IN APPLESAUCE VERY EASILY, FOLLOWED BY WATER FROM HER SIPPY CUP. ASSISTED WITH TURNS. INCONTINENT OF BM, SKIN CARE DONE, COCCYX DRESSING CONTAMINATED WITH STOOL THUS WAS CHANGED. SCREAMS OUT "SHUT UP" MUCH OF NIGHT. GIVEN MELATONIN, SEE MAR. QUIETED DOWN SOMEWHAT BY 2329. CALL LITE IN REACH. BED ALARM ON. HOURLY ROUNDS CONTINUE.
[2020-03-28 08:00] VITALS: BP 110/68
--- NOTE | 2020-03-28 16:21 | NUR ---
TEAM CONFRENCE MEETING HELD YESTERDAY. CM AND PHYSICIAN INFORMED PT AND BROTHER OF MEETING AND PLAN TO HAVE PT REMAIN ON THE UNIT AND CONTINUE THERAPIES AND REASSESS PT'S PROGRESS ON WEDNESDAY. PT'S BROTHER IN AGREEMENT WITH THE PLAN. CM WILL REMAIN AVAILABLE TO ASSIST AND FOLLOW NEEDED.
--- NOTE | 2020-03-28 17:54 | NUR ---
AM ASSESSMENT AND VITAL SIGNS COMPLETED DOCUMENTED. PT ATE WELL TODAY. TYLENOL GIVEN TWICE FOR BEHAVIORS THAT INDICATED DISCOMFORT. PT'S SISTER WAS HERE FOR THE AFTERNOON AND OBSERVED HER DURING THERAPY SESSIONS. PT YELLS OUT FREQUENTLY AND ISN'T COOPERATIVE MOST OF THE TIME. PT REQUIRES MOD ASSIST WITH EATING AND IS DEPENDENT WITH TOILETING. FALL PRECAUTIONS AND HOURLY ROUNDING CONTINUE.
[2020-03-28 21:00] VITALS: BP 94/52
--- NOTE | 2020-03-29 04:59 | NUR ---
ASSUMED CARE AT 1920. ALERT. DRSG TO SACRUM INTACT. STOOL INCONTINENCE. MCLEOD CATHETER DD YELLOW URINE. SLEPT MOST OF THE NIGHT. TURNED ONTO SIDES IN BED. CALL LIGHT IN REACH AND BED ALARM ON.
[2020-03-29 08:00] VITALS: BP 85/53
--- NOTE | 2020-03-29 11:24 | NUR ---
WOUND NURSE: PATIENT SEEN FOR FOLLOW UP ASSESSMENT OF SACROCOCCYGEAL PRESSURE INJURY. NOW MEASURING 2.5 X 1.5 X 0.1 CM BUT WOUND BED IS COVERED WITH YELLOW EXUDATE. SLIGHT PERIWOUND EXCORIATION IS NOTED. SMALL AMOUNT OF SEROUS DRAINAGE. CLEANSED WITH SOAP AND WATER, RINSED WITH WATER, THEN PATTED DRY. APPLIED SKIN PREP TO INTACT PERIWOUND TISSUE. CHANGED TO THERAHONEY UNDER AQUACEL TO WOUND BED, THEN SECURED WITH SURESITE TRANSPARENT DRESSING. PATIENT WAS SITTING UP IN BEDSIDE CHAIR. OT CARING FOR PATIENT OBTAINED WAFFLE CUSHION FOR THE CHAIR. RECOMMEND LIMITING SITTING UP IN CHAIR FROM 1 TO 2 HOURS AT ANY GIVEN TIME.
--- NOTE | 2020-03-29 18:27 | NUR ---
ASSESSMENT COMPLETED DOCUMENTED THIS MORNING. PATIENT IS ASSISTED TO RECLINER CHAIR AT THE BEDSIDE AND THEN BACK TO BED WITH TOTAL ASSIST OF ONE. IS TURNED AND REPOSITIONED BY STAFF Q2 WHEN IN BED. MCLEOD CATH IS PATENT WITH CLOUDY DARK YELLOW URINE. IS DEPENDENT WITH TOILETING AND MEALS. CONTINUES TO YELL/SCREAM OUT CONTINUALLY EVEN AFTER ACETAMINOPHEN/DIPHENHYDRAMINE HAS BEEN GIVEN. FLUIDS OFFERRED, POSITIONING OFFERRED, CONVERSATION OFFERRED AND PATIENTIS UNABLE TO REST WITHOUT YELLING. HOURLY ROUNDING CONTINUES.
[2020-03-29 20:00] VITALS: BP 93/53
--- NOTE | 2020-03-29 22:45 | NUR ---
ASSUMED CARE AT 1920. PATIENT IN BED SCREAMING MUCH OF THE TIME. GIVEN MELATONIN WITH HS MEDS, SEE MAR. ALSO GIVEN APAP AND BENADRYL, BUT CONTINUES TO SCREAM. HAD SMALL BM, PERICARE GIVEN. PANTS AND BRIEF REMOVED WHILE IN BED TO ALLOW AIR TO BUTTOCKS. MCLEOD DRAINING CLOUDY MALINI URINE. TAKES PILLS CRUSHED IN APPLESAUCE. HOURLY ROUNDS CONTINUE. BED ALARM ON. CALL LITE IN REACH.
--- NOTE | 2020-03-30 05:13 | NUR ---
STOPPED YELLING SO MUCH AROUND MIDNIGHT. ASSISTED WITH TURNS. POSITIONED WITH PILLOWS. HAD ONE BM SMEAR THIS SHIFT. MCLEOD DRAINING CLOUDY MALINI URINE. NO APPARENT PAIN NOTED. HOURLY ROUNDS CONTINUE. BED ALARM ON. CALL LITE IN REACH.
[2020-03-30 09:00] VITALS: BP 97/57
[2020-03-30 11:53] LABS: URINE BILIRUBIN NEGATIVE (Negative); URINE BLOOD NEGATIVE (Negative); URINE CLARITY CLEAR; URINE COLOR YELLOW; URINE GLUCOSE-RANDOM NEGATIVE (Negative); URINE KETONES NEGATIVE (Negative); URINE LEUKOCYTES-REFLEX TRACE (Negative); URINE NITRITE-REFLEX NEGATIVE (Negative); URINE PROTEIN NEGATIVE (Negative); URINE SPECIFIC GRAVITY 1.025 (1.005-1.030); URINE UROBILINOGEN 0.2 E.U./dl (0.2-1.0)
[2020-03-30 11:58] LABS: SQUAMOUS 0-3 Few /LPF (0-3)
[2020-03-30 11:59] LABS: TRANSITIONAL EPITHEL CELL 0-3 Few /LPF (None Seen); URINE WBC-REFLEX 0-5 Rare /HPF (0-5)
[2020-03-30 12:00] LABS: CRYSTALS None Seen /LPF (None Seen); HYALINE CASTS 0-3 Few /LPF (None Seen); MUCUS 0-3 Light strn/LPF (None Seen); URINE RBC 0-2 Rare /HPF (0-2)
--- NOTE | 2020-03-30 17:35 | NUR ---
ALERT TO SELF. YELLING OUT MOST OF DAY. SISTER HERE FOR SEVERAL HOURS WITH PATIENT. HAS MCLEOD CATHETER PATENT WITH CLEAR YELLOW URINE. LAST DOSE OF PO ANTIBIODIC CIPRO GIVEN THIS AM. HAS DRESSING OVER COCCYX DECUB. NEEDS ASSIST WITH EATTING. REPOSITIONED SEVERAL TIMES THROUGHOUT DAY. TAKES PILLS CRUSHED WITHOUT DIFFICULTY IN APPLESAUCE. DOES NOT USE CALL LIGHT. FALL PRECAUTIONS IN PLACE. BED ALARM AND CHAIR ALARM USED.
[2020-03-30 19:00] VITALS: BP 129/66
--- NOTE | 2020-03-30 21:00 | NUR ---
IN BED YELLING. ALERT. ORIENT TO PERSON. TOOK MEDICATIONS CRUSHED IN APPLESAUCE FOLLOWED WITH WATER FROM SIPPY CUP. INCONTINENT OF SMALL BM. CHRISTIANO CARE GIVEN.
--- NOTE | 2020-03-31 05:16 | NUR ---
RESTED ON/OFF. YELLING SUBSIDED AFTER ABOUT MIDNIGHT. ASSISTED WITH REPOSITIONING SIDE TO SIDE. HOURLY ROUNDING IN PROGRESS.
[2020-03-31 08:30] VITALS: BP 108/72
--- NOTE | 2020-03-31 17:33 | NUR ---
ALERT BUT YELLS OUT FREQUENTLY. NEEDS 1 ASSIST AND GAIT BELT TO GET UP FROM BED OR CHAIR. ABLE TO WALK IN HALLWAY WITH HOLDING ON TO 1 OF PATIENT'S HANDS. REPOSITIONED AT LEAST EVERY TWO HOURS. DRESSING CHANGED TO SACRUM WOUND. PATIENT USES PLATE NATHEN WHEN EATTING. NEEDS SOME ASSIST AT TIME WITH EATTING. EATS 100% OF MEALS. HAS MCLEOD CATHETER PATENT WITH CLEAR YELLOW URINE. INCONTINENT OF BOWEL MOVEMENT. DOES NOT USE CALL LIGHT. FALL PRECAUTIONS IN PLACE.
[2020-03-31 20:00] VITALS: BP 105/52
--- NOTE | 2020-04-01 06:51 | NUR ---
ASSUMED PT CARE AT 1930. ASSESSMENT COMPLETED CHARTED. UNABLE TO MAKE NEEDS KNOWN. WAS YELLING OUT AT THE BEGINNING OF SHIFT BUT THEN SETTLED DOWN AND WENT TO SLEEP. [id number] COMPLETED CHARTED. NO APPARENT PAIN. MCLEOD IN PLACE DRAINING YELLOW URINE. WILL CONTINUE TO MONITOR.
[2020-04-01 08:08] VITALS: BP 96/67
--- NOTE | 2020-04-01 15:29 | NUR ---
CM SPOKE TO PT AND HER BROTHER TO DISCUSS ANY QUESTIONS OR CONCERNS THAT THEY MAY HAVE FOR THIS WEEKS TEAM CONFRENCE MEETING. PT'S BROTHER INFORMS THAT HE IS CONCERNED WITH D/C PLANNING AND ARRANGING HH. CM SPOKE TO SECOND WORKER AND PHYSICIAN AND CONFIRMED PLAN FOR PT TO D/C HOME WEDNESDAY AFTER TEAM CONFRENCE MEETING. CM INFORMD PT'S SON AND HE IS IN AGREEMENT AND REQUEST [facility]. PT WILL NOT NEED ANY DME. CM WILL REMAIN AVAILABLE TO ASSIST AND FOLLOW NEEDED.
--- NOTE | 2020-04-01 16:05 | NUR ---
MCLEOD CATHETER DISCONTINUED. WILL MONITOR FOR RETENTION. PT YELLS OUT FREQUENTLY. PRN PAIN MEDICATION GIVEN. BROTHER HERE TO VISIT. WORKED WITH THERAPIES.
--- NOTE | 2020-04-01 18:31 | NUR ---
BLADDER SCAN AFTER MCLEOD REMOVEAL. SHOWED 705CC. DR SMTIH NOTIFIED. NEW CATHETER PLACED.
--- NOTE | 2020-04-01 18:35 | NUR ---
PT SISTER ELOISE NOTIFIED OF NEW MCLEOD PLACEMENT.
[2020-04-01 20:00] VITALS: BP 93/60
--- NOTE | 2020-04-02 07:00 | NUR ---
ASSUMED PT CARE AT 1930. ASSESSMENT COMPLETED CHARTED. UNABLE TO MAKE NEEDS KNOWN. [id number] COMPLETED CHARTED. RESTING IN BED MOST OF THE NIGHT. NO C/O PAIN OR DISCOMFORT. PT TORE GLASSES OFF THIS NURSE THEN TURNED AROUND AND RUBBED HER ARM AND KISSED HER HAND. MCLEOD DRAINING LIGHT YELLOW URINE. WILL CONTINUE TO MONITOR.
[2020-04-02 07:30] VITALS: BP 97/55
[2020-04-02 19:00] VITALS: BP 103/50
--- NOTE | 2020-04-02 20:01 | NUR ---
I ASSUMED CARE OF THE PATIENT AT 0700. SHE IS ALERT AND ORIENTED TO SELF ONLY. BED IS IN THE LOW LOCKED POSITION AND CALL LIGHT IS IN REACH. HOURLY ROUNDING IS COMPLETED AND PATIENT NEEDS WERE MET. PAIN IS DENIED. SHE IS A FEEDER OF A PUREED THIN LIQUID DIET. SHE IS IMPACTED AND HAD DIGITAL REMOVAL. AFTER SEVERAL ATTEMPTS, MILK OF MAG AND BISCODYL WAS GIVEN. AFTER NO RESULTS, AN ENEMA WAS GIVEN. PATIENT HAD LOTS OF BOWEL, BUT STILL FEELS FULL. A MCLEOD WAS REMOVED AND OUT FOR 7 HOURS. PATIENT WAS TOILETED, BUT UNABLE TO GO. WHEN BLADDER SCANNED, SHE HAD 650CC. I REINSERTED A MCLEOD AND SHE HAD 700CC OUT. AN OPTIFOAM IS REAPPLIED TO THE COCCYX WOUND. WILL CONTINUE TO MONITOR.
[2020-04-03 04:48] LABS: HEMATOCRIT 33.5 % (37.0-47.0); HEMOGLOBIN 11.1 gm/dL (12.0-15.0); MCH 36.8 pg (26.0-34.0); MCHC 33.2 g/dL (28.0-37.0); MCV 110.8 fL (80.0-100.0); MPV 7.8 fl. (7.2-11.1); RBC 3.02 mil/uL (4.20-5.00); RDW-CV 15.1 % (10.5-14.5); WBC 7.4 thou/uL (4.0-11.0)
[2020-04-03 04:57] LABS: CALCIUM 8.7 mg/dL (8.5-10.1); CREATININE 0.7 mg/dL (0.6-1.3); MAGNESIUM 2.8 mg/dL (1.8-2.4); POTASSIUM 3.7 mmol/L (3.5-5.1)
--- NOTE | 2020-04-03 05:21 | NUR ---
ASSUMED PT CARE AT 1930. PT SCREAMING INCESSANTLY AT BEGINNING OF SHIFT. PT INCONTINENT OF STOOL X2 THIS SHIFT. PERICARE PROVIDED AND PT CALMED DOWN. SCHEDULED AND PRN MEDICATIONS AT HS. PT SLEPT WELL OVERNIGHT. MCLEOD TO DD, DRAINING CLEAR YELLOW URINE. WOUND CLEANSED AND DRESSING REAPPLIED TO COCCYX. CALL LIGHT IN REACH, BED ALARM ON FOR SAFETY. HOURLY ROUNDING IN PROGRESS, WILL CONTINUE TO MONITOR.
[2020-04-03 08:00] VITALS: BP 104/54
[2020-04-03 14:25] VITALS: BP 104/54
[2020-04-03 14:48] VITALS: BP 104/54
[2020-04-03 14:59] VITALS: BP 104/54
[2020-04-03] MEDS ORDERED: COLACE100 MG PO (15:04)
--- NOTE | 2020-04-03 15:58 | NUR ---
PATIENT'S BROTHER VERBALIZED UNDERSTANDING OF DISCHARGE INSTRUCTIONS. HE WAS INSTRUCTED ON CATH CARE. DRESSING CHANGED TODAY TO SACRUM WOUND. SHE HAS SEVERAL LOOSE STOOLS AFTER LAXATIVES YESTERDAY. YELLING OUT MOST OF DAY TODAY. LEFT WITH BROTHER IN FAMILY CAR.
== END 2020-04-03 16:05 | disposition home health service (06) | DRG 947 ==
LOC: M.REH 14:09
PROVIDERS: Family Medicine; Internal Medicine; Nurse Practitioner; ADMIT Physical Medicine & Rehabilitation; ATTEND Physical Medicine & Rehabilitation
DX: R53.81 Other malaise (principal); J96.01 Acute respiratory failure with hypoxia; A41.9 Sepsis, unspecified organism; E43 Unspecified severe protein-calorie malnutrition; E27.40 Unspecified adrenocortical insufficiency; E87.0 Hyperosmolality and hypernatremia; I73.9 Peripheral vascular disease, unspecified; I95.9 Hypotension, unspecified; N30.91 Cystitis, unspecified with hematuria; R33.9 Retention of urine, unspecified; R56.9 Unspecified convulsions; R00.1 Bradycardia, unspecified; L89.159 Pressure ulcer of sacral region, unspecified stage; B96.20 Unspecified Escherichia coli [E. coli] as the cause of diseases classified elsewhere; B95.2 Enterococcus as the cause of diseases classified elsewhere; K56.41 Fecal impaction; Z88.0 Allergy status to penicillin; Z88.8 Allergy status to other drugs, medicaments and biological substances; Q90.9 Down syndrome, unspecified; Z68.20 Body mass index [BMI] 20.0-20.9, adult; Z23 Encounter for immunization